=== PATIENT | male | born 1955 | race Caucasian/White ===

== ENCOUNTER 2025-01-06 10:07 | Outpatient (CLI) | payer MEDICARE, OTHER, SELFPAY ==
--- NOTE | 2025-01-06 10:16 | CT_ITS ---
WS: [id number] CT ANGIOGRAPHY chest and abdomen. HISTORY: THORACOABDOMINAL AORTIC ANEURYSM TECHNIQUE: Pre and postcontrast imaging performed. CT angiogram is performed during IV injection. Reformation images reviewed. All CT scans at [facility] use at least one of these dose optimization techniques: automated exposure control; mA and/or kV adjustment per patient size (includes targeted exams where dose is matched to clinical indication); or iterative reconstruction. CONTRAST: Omnipaque 350; 100 mL IV. DLP: 881.50 mGy COMPARISON: None available. Thoracic aorta: Normal size thoracic aorta. Transverse diameter ascending aorta 3.3 cm. Sinus of Valsalva 2.9 cm. Sinotubular junction 2.7 cm. Descending aorta at the level of the augusto 2.7 cm. There is scattered plaque throughout the aorta. Greatest plaque through the aortic arch and through the proximal descending aorta. No plaque ulcerations. Normal innominate artery. There is a small amount of plaque in the proximal LEFT common carotid artery. Dense calcified plaque at the origin of the LEFT subclavian artery with complete occlusion. Flow identified within the more distal LEFT subclavian arteries probably due to to a patent LEFT vertebral artery although heavily calcified. Centrilobular emphysema. No pulmonary mass or nodule. Normal size pulmonary artery. Normal size heart. No adenopathy. Abdominal aorta: Bilobed infrarenal abdominal aortic aneurysm extends over a length of 8.6 cm. Superior dilatation four 3.9 x 4.2 cm. The more inferior aneurysmal dilatation 4.2 x 4.3 cm. There is circumferential plaque surrounding a patent lumen. Maximum diameter of the plaque is 1.0 cm. Bifurcation returns to normal caliber with heavy calcified plaque continue into the iliac arteries. Calcified plaque at the origin of celiac axis and SMA but no occlusion or high- grade stenosis. Calcified plaque at the proximal renal arteries. No renal atrophy. Kidneys are enhancing normally. Visualization of the liver, gallbladder, spleen, adrenals and pancreas is unremarkable. Visualized GI tract is negative. There is no obstructive pattern. No ascites or adenopathy. Small fat-containing umbilical hernia. 20% anterior wedging of L1. CT/[place] [id number] IMPRESSION: 1. Infrarenal, bilobed abdominal aortic aneurysm. Largest aneurysmal component measures 4.2 x 4.3 cm with circumferential thrombus. 2. Calcified plaque at the origin of the mesenteric arteries but no high-grade stenosis. Kidneys are enhancing normally. 3. Diffuse atherosclerosis thoracic aorta with no aneurysm. 4. Occluded LEFT proximal subclavian artery. Reconstitution of flow into the L EFT subclavian artery via a very small caliber LEFT vertebral artery due to rev ersed flow.
[2025-01-06] MEDS: iohexol 350 mg/mL 500 mL Btl (per mL) IV (10:45)
== END 2025-01-06 10:08 | disposition home or self-care (01) ==
LOC: RAD 10:11
PROVIDERS: PCP Family Medicine; Visit Provider Family Medicine
DX: I71.43 Infrarenal abdominal aortic aneurysm, without rupture (principal); I70.0 Atherosclerosis of aorta; I71.60 Thoracoabdominal aortic aneurysm, without rupture, unspecified
CPT/HCPCS: 71275; 74175

== ENCOUNTER 2025-02-24 03:55 | Emergency (ER) | payer MEDICARE, OTHER, SELFPAY ==
--- NOTE | 2025-02-24 04:01 | XRR_ITS ---
PROCEDURE INFORMATION: Exam: XR Chest Exam date and time: 02/24/2025 4:18 AM Age: 69 years old Clinical indication: Pain; Angina pectoris; Additional info: Weakness TECHNIQUE: Imaging protocol: Radiologic exam of the chest. Views: 1 view. COMPARISON: [place]d [id number] 01/06/2025 10:37 AM FINDINGS: Lungs: Emphysematous changes noted. No consolidation. Pleural spaces: No pleural effusion. No pneumothorax. Heart/Mediastinum: No cardiomegaly. Bones/joints: No acute fracture. XR/XR chest 1V portable [id number] IMPRESSION: No acute findings.
[2025-02-24 04:20] VITALS: BP 122/82; PULSE 80; RESP 17; TEMP 36.9; O2SAT 95; BMI 27.6
--- NOTE | 2025-02-24 04:29 | ECG_ITS ---
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 Measurements Intervals [place] Rate: 83 P: 69 SD: 162 QRS: 46 QRSD: 101 T: 77 QT: 380 QTc: 447 Interpretive Statements SINUS RHYTHM POSSIBLE INFERIOR MYOCARDIAL INFARCTION , PROBABLY OLD [30 ms Q WAVE IN II/aVF] INTERPRETATION BASED ON A DEFAULT AGE OF 40 YEARS No previous ECG available for comparison Electronically Signed On 02-24-2025 13:44:04 CDT by Aleksandr Vance M.D. [id number]
[2025-02-24 04:33] VITALS: BP 122/82; PULSE 85; O2SAT 95
--- NOTE | 2025-02-24 04:33 | CTR_ITS ---
PROCEDURE INFORMATION: Exam: CT Head Without Contrast Exam date and time: 02/24/2025 4:51 AM Age: 69 years old Clinical indication: Dizziness and syncope and collapse TECHNIQUE: Imaging protocol: Computed tomography of the head without contrast. Radiation optimization: All CT scans at this facility use at least one of these dose optimization techniques: automated exposure control; mA and/or kV adjustment per patient size (includes targeted exams where dose is matched to clinical indication); or iterative reconstruction. COMPARISON: CT head wo con* [id number] 09/07/2018 8:14 PM RADIATION DOSE METRICS: Total DLP (mGy-cm): 1052.98 FINDINGS: Brain: No edema, mass effect, or midline shift. No acute intracranial hemorrhage. Periventricular and deep white matter hypodensities compatible with chronic microvascular ischemic changes. Right frontal encephalomalacia. Chronic right basal ganglia lacunar infarct. Cerebral ventricles: No ventriculomegaly. Paranasal sinuses: Visualized sinuses are unremarkable. No fluid levels. Mastoid air cells: No mastoid effusion. Bones: Unremarkable. No acute fracture. Soft tissues: Unremarkable. CT/CT head wo con* [id number] IMPRESSION: No acute intracranial abnormality.
--- NOTE | 2025-02-24 04:41 | W.ED.DIZZY ---
HPI - Dizziness General: Chief Complaint: Dizziness Stated Complaint: Dizziness, Fainting Time Seen by Provider: 02/24/25 04:01 History of Present Illness: HPI Narrative: 69-year-old man who presents the emergency room with complaint of dizziness. This has been going on for couple of days. Particular when he lays down. He says he gets lightheaded. He went to see his doctor yesterday about it. There was medication change. Also his doctor was going to start a Holter monitor. He says when he is in the dark he will see colors and become lightheaded. He describes feelings of heat in his head. No focal motor deficits. No confusion. No facial droop. No slurred speech. He does note that he was better all day until he went outside and smoked some marijuana and then started having the episodes again Related Data Allergies Allergy/AdvReac Type Severity Reaction Status Date / Time No Known Allergies Allergy Verified 02/24/25 04:35 Review of Systems Narrative: Constitutional symptoms: Negative except as documented in HPI. Skin symptoms: Negative except as documented in HPI. Eye symptoms: Negative except as documented in HPI. ENMT symptoms: Negative except as documented in HPI. Respiratory symptoms: Negative except as documented in HPI. Cardiovascular symptoms: Negative except as documented in HPI. Gastrointestinal symptoms: Negative except as documented in HPI. Genitourinary symptoms: Negative except as documented in HPI. Musculoskeletal symptoms: Negative except as documented in HPI. Neurologic symptoms: Negative except as documented in HPI. Psychiatric symptoms: Negative except as documented in HPI. Endocrine symptoms: Negative except as documented in HPI. Physical Exam Narrative: EXAM NARRATIVE: General: Alert, no acute distress. Skin: Warm, dry. Head: Normocephalic, atraumatic. Neck: Supple, trachea midline. Eye: Extraocular movements are intact. Ears, nose, mouth and throat: mucosa moist. Cardiovascular: Regular, Normal peripheral perfusion. Respiratory: Lungs are clear to auscultation, respirations are non-labored, breath sounds are equal, Symmetrical chest wall expansion. Gastrointestinal: Soft, Nontender, Non distended Musculoskeletal: Normal ROM, no deformity. Neurological: Alert and oriented, No focal neurological deficit observed. Psychiatric: Cooperative, appropriate mood & affect. Course Vital Signs: Vital signs: Vital Signs Temperature 98.5 F 02/24/25 04:20 Pulse Rate 80 02/24/25 04:20 Respiratory Rate 17 02/24/25 04:20 Blood Pressure 122/82 02/24/25 04:20 Pulse Oximetry 95 02/24/25 04:20 Oxygen Delivery Me thod Room Air 02/24/25 04:20 MDM - Dizziness Medical Decision Making Medical decision making: Differential diagnosis including but not limited to and based on the above HPI, review of systems and physical exam: for patient with complaint of dizziness: stroke, hypotension, hypertension, infection, vertigo, orthostasis Orders placed to evaluate differential diagnosis based on the above differential, HPI and physical exam EKG: Time 4:29 AM. Rate 83. Normal sinus rhythm, nonspecific ST-T changes, no ectopy, normal VT & QRS intervals, This was reviewed and interpreted by myself the ER physician at 4:[address] head: No acute intracranial process. no intracranial hemorrhage, no evidence of infarct. no evidence of acute fracture.films were interpreted by myself the emergency room provider and pending final radiology review. Chest x-ray: No acute process. No infiltrate. No pneumothorax. Films were interpreted by myself the emergency room provider and pending final radiology review. Lab Review: Laboratory results were reviewed and interpreted by myself the emergency room physician. Mild leukocytosis with a white count of 14.7. No anemia. Platelets are normal. I reviewed the patient's medical record. Reexamination: Patient remained stable. No increased work of breathing. No altered mental status. No focal motor deficits. Assessment and plan: Dizziness ?Unclear etiology of this. Perhaps his marijuana and it seems to be the 1 thing that relatable to it. - Discharged home - Discussed plan with patient. Answered any questions. - Evaluation and treatment of this problem were appropriate in the emergency setting. Lab Data 02/24/25 04:44 02/24/25 04:44 Laboratory Results WBC 14.76 10^3/uL (3.29-11.43) H 02/24/25 04:44 RBC 5.55 10^6/uL (3.85-5.65) 02/24/25 04:44 Hgb 16.30 g/dL (11.27-16.99) 02/24/25 04:44 Hct 49.5 % (37-53) 02/24/25 04:44 MCV 89.2 fl (82-101) 02/24/25 04:44 MCH 29.4 pg (27-33) 02/24/25 04:44 MCHC 32.9 g/dL (30-55) 02/24/25 04:44 RDW 13.0 % (12.1-15.1) 02/24/25 04:44 Plt Count 270 10^3/cmm (157-399) 02/24/25 04:44 MPV 10.9 fL (7.4-10.4) H 02/24/25 04:44 Neut % (Auto) 69.4 % 02/24/25 04:44 Lymph % (Auto) 19.1 % 02/24/25 04:44 [place] % (Auto) 7.7 % 02/24/25 04:44 Eos % (Auto) 2.7 % 02/24/25 04:44 Baso % (Auto) 0.6 % 02/24/25 04:44 Neut # (Auto) 10.24 10^3/uL (1.8-7.7) H 02/24/25 04:44 Lymph # (Auto) 2.8 10^3/uL (0.8-4.8) 02/24/25 04:44 [place] # (Auto) 1.1 10^3/uL (0.2-0.9) H 02/24/25 04:44 Eos # (Auto) 0.4 10^3/uL (0.0-0.8) 02/24/25 04:44 Baso # (Auto) 0.1 10^3/uL (0.0-0.1) 02/24/25 04:44 Nucleated RBC % (auto) 0 % 02/24/25 04:44 Nucleated RBCs # 0.0 /100WBC 02/24/25 04:44 Sodium 141 mmol/L (136-145) 02/24/25 04:44 Potassium 4.6 mmol/L (3.5-5.1) 02/24/25 04:44 Chloride 105 mmol/L (98-107) 02/24/25 04:44 Carbon Dioxide 24 mmol/L (22-29) 02/24/25 04:44 Anion Gap 16.6 (5-19) 02/24/25 04:44 BUN 12 mg/dL (8-23) 02/24/25 04:44 Creatinine 1.1 mg/dL (0.7-1.2) 02/24/25 04:44 GFR Calculation 66.4 mL/min (90-130) L 02/24/25 04:44 Glucose 121 mg/dL (65-115) H 02/24/25 04:44 Calculated Osmolality 293 mOsm/kg (285-295) 02/24/25 04:44 Lactic Acid 1.4 mmol/L (0.5-2.2) 02/24/25 04:44 Calcium 9.4 mg/dL (8.5-10.5) 02/24/25 04:44 Total Bilirubin 0.4 mg/dL (0.15-1.2) 02/24/25 04:44 AST 15 U/L (0-40) 02/24/25 04:44 ALT 10 U/L (0-41) 02/24/25 04:44 Alkaline Phosphatase 69 U/L (40-130) 02/24/25 04:44 Troponin T Baseline 9 ng/L (0-15) 02/24/25 04:44 NT-Pro-B Natriuret Pep 369 pg/mL (0-125) H 02/24/25 04:44 Total Protein 6.9 g/dL (6.6-8.7) 02/24/25 04:44 Albumin 4.3 g/dL (3.5-5.2) 02/24/25 04:44 Globulin 2.6 g/dL (1.3-4.6) 02/24/25 04:44 XR interpretation done by ED provider, pending radiology final review Discharge Plan Discharge Patient Disposition: Home Clinical Impression: Dizziness Condition: Stable Discharge Orders: Discharge ED (Routine); Ordered 02/24/25 Ordered By: Cynthia Dennis Referrals: Rayshawn Dorsey [Primary Care Provider, Family Practice] Discharge Diet: Usual diet Discharge Activity: Increase activity as tolerated Patient Instructions: Opioid Safety, Pain Management, Patient Portal & Misael Instructions Activity Restrictions/Additional Instructions: Thank you for choosing [facility] for your healthcare needs today. You have been screened and evaluated and felt safe for discharge. Health conditions do change or evolve sometimes and as such it is important that you follow up with your Primary Doctor to be re checked, 3-5 days is a general good time frame for follow up. You are always welcome to return to the ED for re assessment if your symptoms are worsening or you have new concerns Print Language: Filipino Coding Level of Care Code ED Electrical Assemblies Supervisor for Pedro Santa
[2025-02-24 04:58] LABS: Hematocrit 49.5 % (37-53); Hemoglobin 16.30 g/dL (11.27-16.99); Mean Corpuscular HGB Conc 32.9 g/dL (30-55); Mean Corpuscular Hemoglobin 29.4 pg (27-33); Mean Corpuscular Volume 89.2 fl (82-101); Nucleated Red Blood Cells % 0 %; Platelet Count 270 10^3/cmm (157-399); Red Blood Count 5.55 10^6/uL (3.85-5.65); White Blood Count 14.76 10^3/uL (3.29-11.43)
[2025-02-24 05:03] VITALS: BP 127/94; PULSE 83; RESP 17; O2SAT 96
[2025-02-24 05:15] LABS: Troponin(5th) Baseline 9 ng/L (0-15)
[2025-02-24 05:20] LABS: Lactic Sepsis W/Reflex 1.4 mmol/L (0.5-2.2)
[2025-02-24 05:29] LABS: Alanine Aminotransferase 10 U/L (0-41); Albumin Level 4.3 g/dL (3.5-5.2); Alkaline Phosphatase 69 U/L (40-130); Aspartate Amino Transferase 15 U/L (0-40); Blood Urea Nitrogen 12 mg/dL (8-23); Calcium 9.4 mg/dL (8.5-10.5); Carbon Dioxide 24 mmol/L (22-29); Chloride 105 mmol/L (98-107); Creatinine Clr Calc Pharmacy 70.6568; Globulin 2.6 g/dL (1.3-4.6); Glucose 121 mg/dL (65-115); NT Pro B Type Natriuretic Pept 369 pg/mL (0-125); Osmolality Calculated 293 mOsm/kg (285-295); Sodium 141 mmol/L (136-145); Total Protein 6.9 g/dL (6.6-8.7)
[2025-02-24 05:30] VITALS: PULSE 79; RESP 15; O2SAT 94
[2025-02-24 05:32] LABS: Anion Gap 16.6 (5-19); Potassium 4.6 mmol/L (3.5-5.1)
[2025-02-24 05:49] VITALS: BP 127/94; PULSE 79; O2SAT 94
== END 2025-02-24 05:51 | disposition home or self-care (01) ==
PROVIDERS: Emergency Provider Emergency Medicine; PCP Family Medicine
DX: R42 Dizziness and giddiness (principal)
CPT/HCPCS: 36415; 70450; 71045; 80053; 83605; 83880; 84484; 85025; 87040; 93005; 99285

== ENCOUNTER → 2025-04-14 12:16 | Outpatient (BNVA) | payer MEDICARE, OTHER, SELFPAY | PROVIDERS: PCP Family Medicine; Visit Provider Internal Medicine Cardiovascular Disease | DX: I65.22 Occlusion and stenosis of left carotid artery (principal); I71.40 Abdominal aortic aneurysm, without rupture, unspecified; I77.1 Stricture of artery; I10 Essential (primary) hypertension; Z95.0 Presence of cardiac pacemaker; Z87.891 Personal history of nicotine dependence | CPT/HCPCS: 99214 ==

== ENCOUNTER 2025-04-26 10:50 | Outpatient (CLI) | payer MEDICARE, OTHER, SELFPAY ==
--- NOTE | 2025-04-26 11:03 | ECG_ITS ---
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 Interpretive Statements Findings: The patient's baseline blood pressure was 139/69 mmHg with a heart rate of 89 bpm. Patient exercised on the treadmill using the Ge protocol for total of 4 minutes and 45 seconds reaching a maximum heart rate of 130 bpm which was 86% of the patient's maximal predicted heart rate, achieving 7 METS. The patient's maximum blood pressure was 192/87 mmHg. The baseline EKG showed normal sinus rhythm with heart rate of 89 bpm, first-degree AV block and nonspecific T wave flattening. Old anterior infarction cannot be excluded. CONCLUSION: 1. Exercise capacity was average for age. 2. Heart rate response was appropriate. 3. Blood pressure response was appropriate. 4. No symptoms of angina during exercise. 5. Electrocardiogram portion of the stress test without evidence of ischemia. Electronically Signed On 04-27-2025 11:43:30 INVESTMENTS MANAGER by Chester Finley M.D. [id number]
[2025-04-26 11:30] VITALS: BMI 27.9
[2025-04-26 11:58] VITALS: BP 161/89; PULSE 102
--- NOTE | 2025-04-26 14:45 | USCV_ITS ---
Ricardo Ramachandran Age: 69 Gender: M : 1955 Exam Date: 04/26/2025 14:42 Ordering Phys: Adeline Dillon MD ([email or web address]) Technologist: ANGELLA [place] [facility] [place]: light headed Risk Factors: Previous Vascular Surgery: Right Brachial BP: / Left Brachial BP: / Right Left Velocity (cm/s) Spectral Plaque Velocity (cm/s) Spectral Plaque Syst/Diast Broadening Syst/Diast Broadening 70.10/ 18.80 Prox CCA 67.50 / 20.80 95.20/ 22.80 Mid CCA 182.50/ 34.00 108.70/25.40 Distal CCA 168.70/ 23.20 26.00/ 3.60 Prox ICA 40.50 / 10.00 54.00/ 14.70 Mid ICA 46.30 / 13.20 57.10/ 15.60 Distal ICA 53.20 / 0.00 45.40 ECA 57.90 0.50 ICA/CCA 0.20 Antegrade Vertebral Antegrade 48.40/ 7.50 cm/s 49.00/ 5.80 cm/s Tri Subclavian [place] 98.90 33.90 FINDINGS right endarterectomy-ATTN: MID AND DISTAL LEFT CCA NO comparisons CONCLUSIONS Right ICA stenosis <50%. Prior RIGHT CEA Left Mid to distal CCA stenosis 50-69%. with moderate atheromatous plaque. Recommend CTA Left ICA stenosis <50%. Intimal thickening in the common carotid arteries and internal carotid arteries bilaterally. Scattered plaque in the CCA's bilaterally Normal antegrade Doppler flow noted in the right vertebral artery. Normal antegrade Doppler flow noted in the left vertebral artery. Chan Almonte MD (Electronically Signed) Final Date: 26 April 2025 16:09 S
== END 2025-04-26 10:51 | disposition home or self-care (01) ==
PROVIDERS: PCP Family Medicine; Visit Provider Internal Medicine Cardiovascular Disease
DX: R07.9 Chest pain, unspecified (principal); R06.02 Shortness of breath; R42 Dizziness and giddiness; I65.22 Occlusion and stenosis of left carotid artery
CPT/HCPCS: 93017; 93880

== ENCOUNTER 2025-04-27 16:22 | Outpatient (CLI) | payer MEDICARE, OTHER, SELFPAY ==
--- NOTE | 2025-04-27 16:45 | CTR_ITS ---
PROCEDURE INFORMATION: Exam: CTA Chest With Contrast CTA Abdomen and Pelvis With Contrast Exam date and time: 04/27/2025 4:53 PM Age: 69 years old Clinical indication: Condition or disease; Arterial aneurysm; Without rupture; Abdominal; Prior surgery; Surgery date: 6+ months; Surgery type: Pacemaker; Additional info: Aaa TECHNIQUE: Imaging protocol: Computed tomographic angiography of the chest with contrast. Exam focused on the arteries. Computed tomographic angiography of the abdomen and pelvis with contrast. Exam focused on the arteries. 3D rendering (Not supervised by radiologist): MIP and/or 3D reconstructed images were created by the technologist. Radiation optimization: All CT scans at this facility use at least one of these dose optimization techniques: automated exposure control; mA and/or kV adjustment per patient size (includes targeted exams where dose is matched to clinical indication); or iterative reconstruction. Contrast material: OMNI 350; Contrast volume: 100 ml; Contrast route: INTRAVENOUS (IV); Other technique: Computed tomographic angiography of the chest with contrast. Exam focused on the arteries. Computed tomographic angiography of the abdomen and pelvis with contrast. Exam focused on the arteries. 3D rendering (Not supervised by radiologist): MIP and/or 3D reconstructed images were created by the technologist. COMPARISON: CR XR chest 1V portable [id number] 02/24/2025 4:18 AM RADIATION DOSE METRICS: Total DLP (mGy-cm): 1151.55 FINDINGS: VASCULATURE: Pulmonary arteries: The main pulmonary artery is normal in caliber. There is no large central pulmonary arterial filling defects present. Aorta: The thoracic aorta is normal in caliber. 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 There is reconstitution at the level of the left vertebral artery. 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 The thoracic aorta is normal in caliber. There is marginal calcified plaque within the arch. There is soft tissue and calcified plaque throughout the margins of the descending thoracic aorta. There is no aortic dissection. There is an infrarenal abdominal aortic aneurysm. Its maximal caliber is 4.7 x 4.2 cm, stable. There is prominent circumferential soft tissue and calcified plaque throughout the infrarenal abdominal aorta. The true opacified aortic lumen measures 2.5 cm in maximal diameter. Celiac and mesenteric arteries: The celiac artery is widely patent as are its primary branch vascularity. There is mild atherosclerotic plaque at the origin of the SMA which is otherwise widely patent. Renal arteries: There is a single renal artery to both kidneys. There is mild atherosclerotic plaque at the origin of both renal arteries with mild origin stenosis. 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 There is mild marginal atherosclerotic plaque within the common iliac arteries. Left iliac arteries: No occlusion or significant stenosis. CHEST: Lungs: There is moderate architectural changes of centrilobular emphysema. There is a solid circumscribed 6 mm nodule within the left lower lobe on image 122 of series 7. There is minimal bibasilar subsegmental linear atelectasis or scarring [id number]. Pleural spaces: Unremarkable. No pneumothorax. No pleural effusion. Heart: Unremarkable. No cardiomegaly. No pericardial effusion. Coronary arteries: There is prominent coronary artery calcification. ABDOMEN AND PELVIS: Liver: No mass. Gallbladder and biliary ducts: Unremarkable. No calcified stones. No ductal dilation. Pancreas: Unremarkable. No mass. No ductal dilation. Spleen: Unremarkable. No splenomegaly. Adrenal glands: Unremarkable. No mass. Kidneys and ureters: There is a cortical cyst at the inferior pole of the left kidney. Stomach and bowel: There is diverticulosis of the sigmoid colon. Appendix: No evidence of appendicitis. Intraperitoneal space: Unremarkable. No free air. No significant fluid collection. Urinary bladder: Unremarkable. No mass. Reproductive: Unremarkable as visualized. Lymph nodes: Unremarkable. No enlarged lymph nodes. Bones/joints: There is an anterior wedge compression fracture of the L2 vertebral body with 50% height loss. This is stable when compared to the prior study. Soft tissues: Unremarkable. CT/CT [facility] [id number] IMPRESSION: 1. Infrarenal abdominal aortic aneurysm. 2. 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 Please correlate with carotid ultrasound. 3. Moderate atherosclerotic disease. 4. Diverticulosis of the sigmoid colon. 5. Anterior wedge compression fracture of L2, stable. 6. Left lower lobe pulmonary nodule, stable. 7. Moderate architectural changes of centrilobular emphysema. For patients at low risk (minimal or absent history of smoking and of other known risk factors), recommend CT Chest at 6-12 months, then consider CT Chest at 18-24 months. For patients at high risk (history of smoking or of other known risk factors), recommend CT Chest at 6-12 months, then CT Chest at 18-24 months. (Reference: Ayde) References: Ayde Tirado et al. Guidelines for Management of Incidental Pulmonary Nodules Detected on CT Images: From the Fleischner Society 2017. Radiology. 2017;284(1):228-243. COMMENTS: 1. Consistent with the [place] [employer]'s Incidental Findings Committee white paper (J Am Davey Radiol 2018): Any incidental renal lesion less than 1 cm or classified as too small to characterize, or any incidental cystic renal lesion characterized as simple-appearing, is likely benign. No follow-up imaging is recommended for these lesions per consensus recommendations based on imaging criteria. 2. The presence of pulmonary emphysema on CT is an independent risk factor for lung cancer. In the absence of a history or active diagnosis of lung cancer, it is recommended that this patient with emphysema be evaluated for enrollment in a low dose CT lung cancer screening program.
[2025-04-27 16:50] LABS: Blood Urea Nitrogen 10 mg/dL (8-23)
[2025-04-27] MEDS: iohexol 350 mg/mL 500 mL Btl (per mL) IV (17:03)
== END 2025-04-27 16:23 | disposition home or self-care (01) ==
LOC: RAD 16:23
PROVIDERS: PCP Family Medicine; Visit Provider Internal Medicine Cardiovascular Disease
DX: I71.40 Abdominal aortic aneurysm, without rupture, unspecified (principal); I70.8 Atherosclerosis of other arteries; R93.89 Abnormal findings on diagnostic imaging of other specified body structures; I70.90 Unspecified atherosclerosis; K57.30 Diverticulosis of large intestine without perforation or abscess without bleeding; M48.56XA Collapsed vertebra, not elsewhere classified, lumbar region, initial encounter for fracture; R91.1 Solitary pulmonary nodule; J43.2 Centrilobular emphysema; I70.0 Atherosclerosis of aorta; M79.89 Other specified soft tissue disorders; K55.1 Chronic vascular disorders of intestine; I70.1 Atherosclerosis of renal artery; I72.8 Aneurysm of other specified arteries; I25.10 Atherosclerotic heart disease of native coronary artery without angina pectoris; N28.1 Cyst of kidney, acquired
CPT/HCPCS: 71275; 74174; 82565; 84520